=== PATIENT | female | born 2000 | race Caucasian/White ===

== ENCOUNTER 2023-08-04 11:59 | Emergency (ER) | payer BC, OTHER ==
--- OUTSIDE RECORDS SUMMARY | 2023-08-04 12:03 | XMS REPORT | Continuity of Care Document ---
:2000 Author Organization [facility] t Address [address] [facility] [address] [place] [id number] Care Team Providers Name Role Phone PCP, PATIENT DOES NOT HAVE A Primary Care Physician Unavaila Anitha Gold Attending Clinician ANITHA RAMOS Attending Clinician Unavailable Payers Payer Name Policy Type Policy Number Effective Date Expiration Date S ource Problems This patient has no known problems. Allergies, Adverse Reactions, Alerts Allergy Allergy Status Severity Reaction(s) Onset Inactive Treating Comm ents Source Name Type Date Date Clinician Sulfamet Propensi Active Hives Univer s hoxazole ty to 07-27 ity of -Trimeth adverse 00:00: [place] oprim reaction 00 [facility] s Branch SULFAMET DRUG Active Hives Univers HOXAZOLE 07-27 ity of -TRIMETH 00:00: [place] OPRIM 00 Medical Branch NO KNOWN Drug Active Univers ALLERGIE Class ity of [facility] Social History Social Habit Start Date Stop Date Quantity Comments Source Gender identity [facility] y [facility] [place] Sexual orientation [facility] [place] Sex Assigned At [birth year] [facility] 00:00:00 00:00:00 Medical Branch Smoking Status Start Date Stop Date Source Tobacco smoking consumption [facility] Branch Medications Ordered Filled Start Stop Current Ordering Indication Dosage Frequency Signature Comments Components Source Medication Medication Date Date Medication? Clinician (SIG) Name Name LORazepam 2022- No 1mg 1 mg, Univer s (ATIVAN) 07-28 Oral, ity of tablet 1 mg 05:15[place] 05[place]08 [place] dose, On Medical Thu07/28/23 Branch at 0015, YANNICK Vital Signs Vital Name Observation Time Observation Value Comments Source Systolic blood 2023-07-28 06:09:00 145 mm[Hg] Univer sity of pressure [facility] Diastolic blood 2023-07-28 06:09:00 98 mm[Hg] [facility] Heart rate 2023-07-28 06:09:00 73 /min [facility] Body temperature 2023-07-28 06:09:00 36.39 Fla[place]ita [facility] Respiratory rate 2023-07-28 06:09:00 18 /min [facility] Oxygen saturation in 2023-07-28 06:09:00 98 /min [facility] Arterial blood by [facility] Pulse oximetry [place] Body height 2023-07-27 23:13:00 167.6 cm [facility] Body weight 2023-07-27 23:13:00 113.399 kg [facility] BMI 2023-07-27 23:13:00 40.35 kg/m2 [facility] Procedures Procedure Date / Time Performing Clinician Source Performed EKG-12 LEAD 2023-07-28 04:21:26 Anitha Ramos [facility] ASSIGNMENT OF BENEFITS 2023-07-28 00:21:54 Doctor Unassigned, No [facility] Name [facility] COVID-19 (ID NOW RAPID 2023-07-27 23:39:00 [facility] CREATINE KINASE 2023-07-27 23:38:00 Anitha Ramos [facility] y [facility] TEST, SERUM 2023-07-27 23:38:00 Anitha Ramos [facility] COMP. METABOLIC PANEL 2023-07-27 23:38:00 Anitha Ramos [facility] ([id number]) [facility] SALICYLATE 2023-07-27 23:38:00 Anitha Ramos [facility] y [facility] ETHANOL 2023-07-27 23:38:00 Anitha Ramos [facility] CBC WITH DIFF 2023-07-27 23:38:00 [facility] URINE DRUG (IMMUNOASSAY) 2023-07-27 23:38:00 Anitha Ramos [facility] - COMPREHENSIVE DRUG Medical Bra nch SCREEN W/O REFLEX CONSENT/REFUSAL FOR 2023-07-27 23:08:01 Doctor Unassigned, No Un [facility] DIAGNOSIS AND TREATMENT Name [facility] NOTICE OF PRIVACY 2023-07-27 23:07:42 Doctor Unassigned, No Univ [facility] PRACTICES Name [facility] Encounters Start End Encounter Admission Attending Care Care Encounter Source Date/Time Date/Time Type Type Clinicians Facility Department ID 2023-07-27 2023-07-28 Emergency Rachel [facility] [id number] Univers 18:20:00 02:39:00 Anitha James [facility] [id number] [facility] [id number] [facility] [id number] [facility] 084 Branch 2023-07-27 2023-07-28 [facility] [id number] Univers 18:20:00 02:39:00 [facility] Results This patient has no known results. Notes Date/Time Note Provider Source 2023-07-28 Formatting of this note might be differe nt from the original. Jaylyn Sweeney RN [facility] 02:36:00-00:00 Transfer warrant signed by Carol Saleh. Pt left with [facility] Deputy Ahmadi to [facility] 2023-07-28 [facility] 00:20:28-00:00 Pt seen texting on cell [email or web address] e after policy has been reviewed with her and friend numerous times that she may not have her vape or cell phone. Pt would not give the phone to the RN. [facility] officer aquired phone and returned it to the friend who states she forgot it on the bed when she went to get the pt tampons. Friend and mother notified the pt needs to rest now and we will deliver the tampons to the pt. 2023-07-27 [facility] 23:34:21-00:00 [employer] Deputy Ahmadi in d ept speaking to pt. LASHELL issued by Deputy Ahmadi 2023-07-27 [facility] 23:22:03-00:00 Pt crying and anxious, state s "y'all should really tell people you are going to hold them against their will when they come here. I'm about to freak out. I want my shit." Pt offered PO ativan at this ti me, doesn't want it at this time. [employer] arrived a t facility at this time. 2023-07-27 [facility] 22:50:25-00:00 EDP discussed POC to transfe r to inpt psych facility. Pt expressing desire to leave. [facility] contacted for LASHELL. 2023-07-27 [facility] 20:53:57-00:00 [facility] screener in department. 2023-07-27 Formatting of this note might be differe nt from the original. Sarah Alba PCT [facility] 20:02:40-00:00 Jesus with [employer] called s aying he would be here within the hour. 2023-07-27 [facility] 19:42:52-00:00 Pt medically cleared per pro vider. POC reviewed with pt and provider to have Javon Salguero evaluate her for inpt vs outpt recommendations. Psych screener requested from Yohana Duval. patient awake alert oriented , calm and cooperative, resp reg unlabored, skin w/d, color pink, in no apparent distress, ambulatory with steady gait. Pt allowed to have adult female visitor. Patient/family educated on e mergency department behavioral process and precautions. Educated on the need for direct observation, removal of belongings, and clearing of room for patient safety. Patient/f amily given community resources for outpatient t reatment and care. 2023-07-27 Formatting of this note is different from the or iginal. [facility] 18:50:06-00:00 Suicide Risk - Assessment and Plan [place]: 1) Have you wished you were or could go to sleep and not wake up?: (P) Yes 2) Have you had thoughts of killing yourself?: ( P) Yes 3) Have you been thinking about how you might ki ll yourself?: (P) No 4) Suicidal ideation with some intent?: (P) No 5) Have you worked out the d etails of the plan AND intend to follow through?: (P) No 6) Suicidal Behavior or preparation for suicide? : (P) No [place] Score: Suggested risk level: (P) Low SAFE-T: Current and past psychiatric diagnoses: (P) None Presenting symptoms: (P) Hopelessness or despair (lost job recently) Family history: (P) No family history of psychia tric illness Activating Events: (P) Recen t losses or other significant negative event(s) (legal, financial, etc) Precipitants / stressors: (P ) Triggering events leading to humiliation, shame, and/or despair Protective factors: (P) Ability to cope with str ess Access to Lethal Means: Does patient have access to a gun or access to g uns?: (P) No Specific Questions of Thoughts, Plans, Intent: Frequency- how many times have you had these tho ught?: (P) Many times a day 2.Duration - When you have t he thoughts, how long do they last?: (P) More than 8 hours/persistent or continuous 3.Controllability - could/ca n you stop thinking about killing yourself or wanting to if you want to? "Is it easy, a little hard, very hard, or are you unable?": (P) Unable to control thoughts 4.Deterrents - are there thi ngs, anyone or anything (family, episcopal, pain of ) that have stopped you from wanting to or acting on thoughts of committing suicide?: (P) Deterrents definitely did not stop Reasons for ideation - What are the reasons you have for wanting to or kill yourself? Was it to end pain, stop the way you are feeling, or to get attention, or get revenge and reaction from others?: (P) Completely to end or st op the pain (you couldn't go on living with the pain or how you were feeling) Behavior Assessment: 1.Were there preparatory act s like buying pills, guns, giving things away, or writing suicide note?: (P) Yes 2.Was an attempt aborted or self - interrupted?: (P) No 3.Was an attempt interrupted by someone else?: ( P) No 4.Was there an actual attempt?: (P) Yes 5.Is there non suicidal self injury? Cutting, bi ting, skin picking: (P) No 6.For youth: parents or guar dians should be asked about thoughts, plans, behaviors, mood changes, etc : (P) Comments (na) 7.Is there homicidal ideation: if so, describe: (P) No Stratification: High Suicide Risk Moderate Suicide Risk Low Suic shannon Risk ?? Suicidal ideation with in tent or intent with plan in past month (C-SSRS Suicidal Ideation #4 or #5) Or ?? Suicidal behavior within past 3 months (C-SSRS Suicidal Behavior) ?? Suicidal ideation with method, WITHOUT plan, intent or behavior in past month (C-SSRS Suicidal Ideation #3) Or ?? Suicidal behavior more th an 3 months ago (C-SSRS Suicidal Behavior Lifetime) Or ?? Multiple risk factors and few protective factors ?? Wish to or Suicidal Ideation WITHOUT method, intent, plan or behavior (C-SSRS Suicidal Ideation #1 or #2) Or ?? Modifiable risk factors and strong protective factors Or ? No reported history of Suicidal Ideation or Be havior Location / Risk: Inpatient / High: Suicidal ideation with inten t and with realistic plan and no protective factors in past month OR suicidal behavior within the past 3 months. Includes suicidal behavior as reason for admission. a. Mitigate the risk for lisa cide by instituting one-one monitoring, removing objects that pose a risk for self-harm, assessing objects brought into a room by visitors, using safe transportation procedur es when moving patient to an other part of the unit or another part of the hospital, and performing the checklist recommendations for a safe environment. b. Food tray in plastic or p aper containers with plastic utensils (no knives or aluminum cans). c. Transfer to Inpatient Psy chiatry facility/Psychiatry Consult once medically cleared. d. Follow-up determined by the inpatient Psychia tric facility. 2023-07-27 Formatting of this note might be differe nt from the original. Helen Brown RN [facility] 18:28:06-00:00 [facility] as paper scrubs unable to fit her. Pants were searched to ensure safety-no objects found, no strings. Electronically signed by Helen Brown RN at 6:28 PM CDT 2023-07-27 [facility] 18:21:54-00:00 Patient/family educated on e mergency department behavioral process and precautions. Educated on the need for direct observation, removal of belongings, and clearing of room for patient safety. Patient/f amily given community resources for outpatient t reatment and care. Electronically signed by Helen Brown RN at 6:22 PM CDT 2023-07-27 [facility] 18:10:12-00:00 Pt arrived via private car w ith mother. States "I took a bunch of pills the other day" (Thursday), states it was in an attempt to harm herself and she is still having thoughts of self harm. States she h as never seen a MD for these thoughts and it was also the first time for her to make any attempt. States she has had "thoughts for a long time".
--- NOTE | 2023-08-04 12:13 | EDPHYS ---
Physician Documentation [facility] Name: Suki Barber Age: 23 yrs Sex: Female : 2000 Arrival Date: 08/04/2023 Time: 11:59 Bed IW1 Private MD: ED Physician Saul Ramsey HPI: 08/04 12:14 This 23 yrs old Female presents to ER via Ambulatory with complaints of Stomach Lump. kb 12:14 the patient presents with a swollen area of the umbilical area. The patient has not kb experienced similar symptoms in the past. The patient has not recently seen a physician. 12:15 Description: draining, erythematous, swollen. Onset: The symptoms/episode kb began/occurred 1 week(s) ago. Possible cause(s): unknown. Associated signs and symptoms: Pertinent positives: drainage, erythema. Modifying factors: the symptoms are alleviated by nothing, the symptoms are aggravated by touching. Severity of symptoms: At their worst the symptoms were mild, moderate, in the emergency department the symptoms are unchanged. Pt reports she noticed a lump in her belly button last week that started draining. Now is having drainage, redness and pain. 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 - Social history:: Smoking status: Reported history of juuling and/or vaping. ROS: 12:14 Constitutional: Negative for fever, chills, and weight loss. kb 12:14 Skin: Positive for erythema, swelling, of the umbilical area. 12:14 All other systems are negative. Exam: 12:14 Constitutional: This is a well developed, well nourished patient who is awake, alert, kb and in no acute distress. Head/Face: Normocephalic, atraumatic. ENT: Moist Mucous membranes Cardiovascular: Regular rate Respiratory: Respirations even and unlabored. No increased work of breathing. Talking in full sentences MS/ Extremity: Pulses equal, no cyanosis. Neurovascular intact. Full, normal range of motion. Neuro: Awake and alert, GCS 15, oriented to person, place, time, and situation. Moves all extremities. Normal gait. 12:14 Skin: abscess, that is small, of the umbilical area, with drainage, with induration. Vital Signs: 12:11 BP 131 / 86; Pulse 83; Resp 18; Temp 98.4; Pulse Ox 100% ; Weight 122.47 kg; Height 5 ap3 ft. 6 in. ; Pain 10/10; 12:11 Body Mass Index 43.58 (122.47 kg, 167.64 cm) ap3 12:11 Pain Scale: Adult ap3 MDM: 12:06 Patient medically screened. kb 12:14 Differential diagnosis: abscess, allergic reaction, cellulitis, insect bite. Data kb reviewed: vital signs, nurses notes. Counseling: I had a detailed discussion with the patient and/or guardian regarding the historical points, exam findings, and any diagnostic results supporting the discharge/admit diagnosis, the need for outpatient follow up, a general surgeon, to return to the emergency department if symptoms worsen or persist or if there are any questions or concerns that arise at home. Administered Medications: No medications were administered Disposition Summary: 08/04/23 12:12 Discharge Ordered Location: Home kb Condition: Stable kb Diagnosis - Local infection of the skin and subcutaneous tissue, unspecified kb Followup: kb - With: Emergency Department - When: As needed - Reason: Worsening of condition Followup: kb - With: Private Physician - When: 2 - 3 days - Reason: Recheck today's complaints, Continuance of care, Re-evaluation by your physician Discharge Instructions: - Discharge Summary Sheet kb - Skin Abscess, [id number] kb Forms: - Medication Reconciliation Form kb - Thank You Letter kb - Antibiotic Education kb - Prescription Opioid Use kb - Patient Portal Instructions kb - Leadership Thank You Letter kb Prescriptions: - Cephalexin 500 mg Oral Capsule - take 1 capsule by ORAL route every 8 hours for 10 days; 30 capsule; Refills: 0, kb Product Selection Permitted - Clindamycin HCl 300 mg Oral Capsule - take 1 capsule by ORAL route every 6 hours for 10 days; 40 capsule; Refills: 0, kb Product Selection Permitted Signatures: Arpita Anderson FNP-C FNP-Ckb Prokisch, Amanda, RN RN ap3
--- NOTE | 2023-08-04 12:13 | ER ---
Nurse's Notes [facility] Name: Suki Barber Age: 23 yrs Sex: Female : 2000 Arrival Date: 08/04/2023 Time: 11:59 Bed IW1 Private MD: Diagnosis: Local infection of the skin and subcutaneous tissue, unspecified Presentation: 08/04 12:09 Chief complaint: Patient states: she has pain and bleeding from her belly button. ap3 Coronavirus screen: At this time, the client does not indicate any symptoms associated with coronavirus-19. Ebola Screen: No symptoms or risks identified at this time. Initial Sepsis Screen: Does the patient meet any 2 criteria? No. Patient's initial sepsis screen is negative. Does the patient have a suspected source of infection? Yes: Skin breakdown/wound. Risk Assessment: Do you want to hurt yourself or someone else? Patient reports no desire to harm self or others. Onset of symptoms was August 04, 2023. 12:09 Method Of Arrival: Ambulatory ap3 12:09 Acuity: MANDA 4 ap3 Triage Assessment: 12:11 General: Appears in no apparent distress. Behavior is anxious. Pain: Complains of pain ap3 in umbilical area. Neuro: Level of Consciousness is awake, alert, obeys commands, Oriented to person, place, time, situation. Cardiovascular: Patient's skin is warm and dry. Respiratory: Airway is patent Respiratory effort is even, unlabored, Respiratory pattern is regular, symmetrical. 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 - Social history:: Smoking status: Reported history of juuling and/or vaping. Screenin:11 [facility] ED Fall Risk Assessment (Adult) History of falling in the last 3 months, ap3 including since admission No falls in past 3 months (0 pts). Abuse screen: Denies threats or abuse. Nutritional screening: No deficits noted. Tuberculosis screening: No symptoms or risk factors identified. Vital Signs: 12:11 BP 131 / 86; Pulse 83; Resp 18; Temp 98.4; Pulse Ox 100% ; Weight 122.47 kg; Height 5 ap3 ft. 6 in. ; Pain 10/; 12:11 Body Mass Index 43.58 (122.47 kg, 167.64 cm) ap3 12:11 Pain Scale: Adult ap3 ED Course: 12:06 Patient arrived in ED. mg5 12:06 Arpita Anderson FNP-C is [facility]. kb 12:06 Saul Ramsey MD is Attending Physician. kb 12:10 Triage completed. ap3 12:12 Arm band placed on left wrist. ap3 12:12 Patient has correct armband on for positive identification. Provided Education on: ap3 wound care. 12:12 No provider procedures requiring assistance completed. Patient did not have IV access ap3 during this emergency room visit. Administered Medications: No medications were administered Medication: 12:12 VIS not applicable for this client. ap3 Outcome: 12:12 Condition: good ap3 12:12 Discharge ordered by MD. kb 12:15 Discharged to home ambulatory. ap3 12:15 Discharge instructions given to patient. 12:15 Instructed on discharge instructions, follow up and referral plans. medication usage, Demonstrated understanding of instructions, follow-up care, medications, Prescriptions given X 2. 12:15 Patient left the ED. ap3 Signatures: Arpita Anderson FNP-C FNP-Ckb Prokisch, Amanda, BONNIE RN ap3 Vani Berry mg5
[2023-08-04 12:38] VITALS: BP 131/86; TEMP 98.4; O2SAT 100
== END 2023-08-04 12:15 | disposition home or self-care (01) ==
LOC: ER 11:59
DX: L08.9 Local infection of the skin and subcutaneous tissue, unspecified (principal); Z88.1 Allergy status to other antibiotic agents; Z88.2 Allergy status to sulfonamides
CPT/HCPCS: 99283